=== PATIENT | male | born 1945 | race African-American/Black ===

== ENCOUNTER 2018-08-10 14:59 | Emergency (ER) | payer OTHER ==
[~2018-08-10] VITALS: Ht 175.3 cm; Wt 77.0 kg
[~2018-08-10 14:59] MED LIST: CLOP75TA33; LISI10TA5; PLAVIX; [UNRECOGNIZED DRUG - REMARK]
[2018-08-10] MEDS ORDERED: LIDOCAINE HCL 1% 20ML VIAL (Pyxis) INJ INFIL ONE (16:30)
[2018-08-10] MEDS ORDERED: LIDOCAINE HCL/PF 1% 10 MG/ML 5ML VIAL IJ NR (16:31)
[2018-08-10 17:44] LABS: BASOPHILS % 0.7 % (0.0-2.0); EOSINOPHILS % 2.6 % (0.0-5.0); HEMOGLOBIN. 12.7 g/dL (14.0-18.0); LYMPHOCYTES % 21.4 % (20.0-50.0); MEAN CORPUSCULAR HEMOGLOBIN 35.6 pg (28.0-32.0); MEAN CORPUSCULAR VOLUME 106.6 fL (80.0-94.0); MEAN PLATELET VOLUME 6.6 fl (7.4-10.4); MONOCYTES % 12.9 % (2.0-8.0); NEUTROPHILS % 62.4 % (40.0-76.0); PLATELET 319 x1000/uL (130-400); RED BLOOD CELL COUNT 3.56 mill/uL (4.7-6.1); RED CELL DISTRIBUTION WIDTH 16.2 % (11.6-14.6)
[2018-08-10 17:48] LABS: CHLORIDE 114 mEq/L (98-107)
[2018-08-10 17:52] LABS: ETHANOL BLOOD 258 mg/dL
[2018-08-11 01:30] VITALS: BP 120/72
== END 2018-08-11 01:50 | disposition home or self-care (01) ==
LOC: ER 14:59
DX: S01.81XA Laceration without foreign body of other part of head, initial encounter (principal); F10.129 Alcohol abuse with intoxication, unspecified; Z79.899 Other long term (current) drug therapy; W22.8XXA Striking against or struck by other objects, initial encounter; Y93.89 Activity, other specified; Y92.89 Other specified places as the place of occurrence of the external cause; Y99.8 Other external cause status; Y90.8 Blood alcohol level of 240 mg/100 ml or more
CPT/HCPCS: 12011; 36415; 70450; 80053; 85025; 99285; G0482; J7060; J3490

== ENCOUNTER 2018-08-16 11:24 | Inpatient (IN) | payer OTHER ==
[~2018-08-16] VITALS: Ht 180.3 cm; Wt 52.2 kg
[2018-08-16] MEDS ORDERED: SODIUM CHLORIDE 0.9% 1,000 ML IV ONE (11:30)
[2018-08-16 12:19] LABS: BG BASE EXCESS -7.3 mmol/L (-2.0-2.0); BG CARBOXYHEMOGLOBIN 1.1 % (0.5-1.5); BG DEOXYHEMOGLOBIN 5.1 % (0.0-5.0); BG FRACTION INSPIRED OXYGEN 26; BG HCO3 ACT 17.1 mmol/L (22.0-26.0); BG METHEMOGLOBIN 0.3 % (0.0-1.5); BG OXYGEN SATURATION 94.8 % (92.0-98.5); BG OXYHEMOGLOBIN 93.5 % (94.0-97.0); BG PCO2 31.2 mmHg (35.0-45.0); BG PH 7.356 (7.350-7.450); BG PO2 82.9 mmHg (75.0-100.0); BG SAMPLE SITE RIGHT RADIAL; BG TOTAL HEMOGLOBIN 12.6 g/dL (12.0-18.0); BG VENT MODE NASAL CANNULA
[2018-08-16 12:19] LABS: BASOPHILS % 0.6 % (0.0-2.0); HEMATOCRIT. 38.3 % (42.0-52.0); HEMOGLOBIN. 12.8 g/dL (14.0-18.0); LYMPHOCYTES % 8.3 % (20.0-50.0); MEAN CORPUSCULAR HEMOGLOBIN 35.5 pg (28.0-32.0); MEAN CORPUSCULAR VOLUME 106.2 fL (80.0-94.0); MEAN PLATELET VOLUME 7.2 fl (7.4-10.4); NEUTROPHILS % 88.1 % (40.0-76.0); PLATELET 237 x1000/uL (130-400); RED BLOOD CELL COUNT 3.61 mill/uL (4.7-6.1); RED CELL DISTRIBUTION WIDTH 15.4 % (11.6-14.6)
[2018-08-16 12:23] LABS: CHLORIDE 109 mEq/L (98-107)
[2018-08-16 12:24] LABS: PROTHROMBIN TIME 10.5 sec (9.1-11.1)
[2018-08-16 12:27] LABS: ETHANOL BLOOD 29 mg/dL
[2018-08-16 12:30] LABS: AMMONIA 15 uMol/L (<32)
[2018-08-16] MEDS ORDERED: PIPERACILLIN/TAZ 3.375G PREMIX 50 ML IV ONE (12:45)
[2018-08-16] MEDS ORDERED: POTASSIUM CHLORIDE 20MEQ TABLET SR PO ONE (12:45)
[2018-08-16] MEDS ORDERED: DEXT 10% WATER 1,000 ML IV ONE (13:00)
[2018-08-16] MEDS ORDERED: DEXTROSE 50% WATER 50ML SYRINGE IV ONE (13:00)
[2018-08-16 19:00] VITALS: BP 161/81
[2018-08-16 19:01] VITALS: BP 161/81
[2018-08-16 20:00] VITALS: BP 128/74
[2018-08-16 20:01] VITALS: BP 128/74
[2018-08-16] MEDS ORDERED: DEXTROSE 50% WATER 50ML SYRINGE IV PRN (20:15)
[2018-08-16] MEDS: BLOOD SUGAR DIAGNOSTIC STRIP TEST SCH (20:22)
[2018-08-16] MEDS: INSULIN LISPRO 100 UNITS/ML SUBCUT SCH (20:23)
[2018-08-16] MEDS ORDERED: LORAZEPAM 2MG/ML CPJ IV PRN (21:30)
[2018-08-16] MEDS: DEXT 5%/0.45% NACL 1000ML 1,000 ML IV SCH (21:35)
[2018-08-16 22:01] VITALS: BP 135/67
[2018-08-16] MEDS ORDERED: POTASSIUM CHLORIDE 20MEQ TABLET SR PO NR (23:00)
[2018-08-16] MEDS ORDERED: CALCIUM GLUCONATE 1,000 MG in DEXT 5% WATER 90 ML IV NR (23:30)
[2018-08-17] VITALS (10 sets, daily range): BP systolic 116–151; BP diastolic 48–97
[2018-08-17] MEDS: PANTOPRAZOLE 40MG DR TABLET PO SCH ×3 (00:26→20:21)
[2018-08-17 06:09] LABS: CHLORIDE 109 mEq/L (98-107)
[2018-08-17 06:15] LABS: BASOPHILS % 0.4 % (0.0-2.0); EOSINOPHILS % 0.2 % (0.0-5.0); HEMATOCRIT. 33.6 % (42.0-52.0); HEMOGLOBIN. 11.3 g/dL (14.0-18.0); LYMPHOCYTES % 10.5 % (20.0-50.0); MEAN CORPUSCULAR HEMOGLOBIN 35.7 pg (28.0-32.0); MEAN CORPUSCULAR VOLUME 105.9 fL (80.0-94.0); MEAN PLATELET VOLUME 7.3 fl (7.4-10.4); NEUTROPHILS % 82.9 % (40.0-76.0); PLATELET 168 x1000/uL (130-400); RED BLOOD CELL COUNT 3.17 mill/uL (4.7-6.1); RED CELL DISTRIBUTION WIDTH 15.5 % (11.6-14.6)
[2018-08-17] MEDS: BLOOD SUGAR DIAGNOSTIC STRIP TEST SCH ×4 (07:27→20:22)
[2018-08-17] MEDS: INSULIN LISPRO 100 UNITS/ML SUBCUT SCH ×4 (07:46→20:21)
[2018-08-17] MEDS: DEXT 5%/0.45% NACL 1000ML 1,000 ML IV SCH (10:09)
[2018-08-17] MEDS ORDERED: MAGNESIUM 2 G PREMIX 50 ML IV NR (18:00)
[2018-08-18] VITALS (12 sets, daily range): BP systolic 112–149; BP diastolic 55–98
[2018-08-18 05:28] LABS: BASOPHILS % 0.3 % (0.0-2.0); EOSINOPHILS % 0.7 % (0.0-5.0); HEMATOCRIT. 35.7 % (42.0-52.0); HEMOGLOBIN. 12.1 g/dL (14.0-18.0); LYMPHOCYTES % 18.1 % (20.0-50.0); MEAN CORPUSCULAR HEMOGLOBIN 35.9 pg (28.0-32.0); MEAN CORPUSCULAR VOLUME 105.8 fL (80.0-94.0); MEAN PLATELET VOLUME 7.7 fl (7.4-10.4); MONOCYTES % 6.9 % (2.0-8.0); PLATELET 139 x1000/uL (130-400); RED BLOOD CELL COUNT 3.38 mill/uL (4.7-6.1); RED CELL DISTRIBUTION WIDTH 15.3 % (11.6-14.6)
[2018-08-18 07:12] LABS: CHLORIDE 106 mEq/L (98-107)
[2018-08-18] MEDS: BLOOD SUGAR DIAGNOSTIC STRIP TEST SCH ×4 (07:32→20:33)
[2018-08-18] MEDS: INSULIN LISPRO 100 UNITS/ML SUBCUT SCH ×4 (08:00→20:42)
[2018-08-18] MEDS: PANTOPRAZOLE 40MG DR TABLET PO SCH ×2 (08:08→20:32)
[2018-08-18] MEDS: FOLIC ACID 1MG TABLET PO SCH (08:08)
[2018-08-18] MEDS ORDERED: POTASSIUM CHLORIDE 20MEQ TABLET SR PO SCH (13:30)
[2018-08-18] MEDS: DEXT 5%/0.45% NACL 1000ML 1,000 ML IV SCH (14:12)
[2018-08-18] MEDS ORDERED: POTASSIUM CHLORIDE 10MEQ TABLET SR PO SCH (19:15)
[2018-08-19] VITALS (8 sets, daily range): BP systolic 107–142; BP diastolic 56–76
[2018-08-19] MEDS: DEXT 5%/0.45% NACL 1000ML 1,000 ML IV SCH (05:20)
[2018-08-19 07:09] LABS: CHLORIDE 108 mEq/L (98-107)
[2018-08-19] MEDS: INSULIN LISPRO 100 UNITS/ML SUBCUT SCH ×3 (07:53→17:38)
[2018-08-19] MEDS: BLOOD SUGAR DIAGNOSTIC STRIP TEST SCH ×4 (07:53→21:00)
[2018-08-19] MEDS: PANTOPRAZOLE 40MG DR TABLET PO SCH ×2 (08:15→22:31)
[2018-08-19] MEDS: FOLIC ACID 1MG TABLET PO SCH (08:15)
[2018-08-19 12:26] LABS: CLARITY URINE CLEAR (CLEAR); COLOR URINE YELLOW (YELLOW); KETONES URINE NEGATIVE (NEGATIVE); LEUKOCYTE ESTERASE URINE NEGATIVE (NEGATIVE); NITRITE URINE NEGATIVE (NEGATIVE); OCCULT BLOOD URINE NEGATIVE (NEGATIVE); PROTEIN URINE NEGATIVE (NEGATIVE); SPECIFIC GRAVITY URINE 1.005 (1.005-1.030)
[2018-08-19] MEDS ORDERED: NICOTINE 21MG PATCH TD NR (13:30)
[2018-08-19 13:59] LABS: CANNABINOID URINE SCREEN NEGATIVE (NEGATIVE); METHADONE URINE SCREEN NEGATIVE (NEGATIVE); OPIATES URINE SCREEN NEGATIVE (NEGATIVE); PHENCYCLIDINE URINE SCREEN NEGATIVE (NEGATIVE)
[2018-08-19 14:01] LABS: *AMPHETAMINES SCREEN URINE NEGATIVE (NEGATIVE); *BARBITURATES SCREEN URINE NEGATIVE (NEGATIVE); *BENZODIAZEPINES SCREEN URINE NEGATIVE (NEGATIVE); *COCAINE SCREEN URINE NEGATIVE (NEGATIVE)
[2018-08-19 16:03] LABS: HEPATITIS B SURFACE ANTIGEN NEGATIVE
[2018-08-19 16:32] LABS: HEPATITIS B CORE AB IGM NEGATIVE
[2018-08-19 16:33] LABS: HEPATITIS A AB IGM NEGATIVE (NEGATIVE)
[2018-08-20] VITALS (8 sets, daily range): BP systolic 112–135; BP diastolic 54–77
[2018-08-20] MEDS ORDERED: ONDANSETRON HCL 4MG/2ML INJ IV PRN (03:30)
[2018-08-20 06:14] LABS: HEMATOCRIT 34.8 % (42.0-52.0); HEMOGLOBIN 11.9 g/dL (14.0-18.0); MEAN CORPUSCULAR HEMOGLOBIN 36.2 pg (28.0-32.0); MEAN CORPUSCULAR VOLUME 106.3 fL (80.0-94.0); PLATELET 123 x1000/uL (130-400); RED BLOOD CELL COUNT 3.27 mill/uL (4.7-6.1); RED CELL DISTRIBUTION WIDTH 15.3 % (11.6-14.6)
[2018-08-20 06:23] LABS: CHLORIDE 104 mEq/L (98-107)
[2018-08-20] MEDS: BLOOD SUGAR DIAGNOSTIC STRIP TEST SCH ×4 (07:29→21:00)
[2018-08-20] MEDS: PANTOPRAZOLE 40MG DR TABLET PO SCH (08:01)
[2018-08-20] MEDS: MULTIVITAMINS,THER W-MINERALS TABLET PO SCH (08:01)
[2018-08-20] MEDS: FOLIC ACID 1MG TABLET PO SCH (08:01)
[2018-08-20] MEDS: THIAMINE HCL 100MG TABLET PO SCH (08:01)
[2018-08-20] MEDS: NICOTINE 21MG PATCH TD SCH (08:02)
[2018-08-20] MEDS ORDERED: MORPHINE SULFATE 4 MG/ML CPJ (NOT FOR IM USE) IV PRN (14:15)
[2018-08-20] MEDS: DEXT 5%/0.45% NACL 1000ML 1,000 ML IV SCH (14:30)
[2018-08-20] MEDS ORDERED: LORAZEPAM 2MG/ML CPJ IV PRN (15:30)
[2018-08-20] MEDS ORDERED: BISACODYL 5MG TABLET PO PRN (17:15)
[2018-08-20] MEDS ORDERED: BISACODYL 10MG SUPP PR PRN (17:15)
[2018-08-20 18:33] LABS: GAMMA GLUTAMYL TRANSPEPTIDASE 666 IU/L (11-50)
[2018-08-20 18:34] LABS: AMYLASE 141 IU/L (25-115)
[2018-08-21] VITALS: BP 129/63
[2018-08-21] MEDS: DEXT 5%/0.45% NACL 1000ML 1,000 ML IV SCH (03:19)
[2018-08-21 04:00] VITALS: BP 130/72
[2018-08-21 05:46] LABS: BASOPHILS % 0.4 % (0.0-2.0); EOSINOPHILS % 1.7 % (0.0-5.0); HEMATOCRIT. 33.3 % (42.0-52.0); HEMOGLOBIN. 11.2 g/dL (14.0-18.0); LYMPHOCYTES % 19.7 % (20.0-50.0); MEAN PLATELET VOLUME 8.1 fl (7.4-10.4); MONOCYTES % 8.9 % (2.0-8.0); NEUTROPHILS % 69.3 % (40.0-76.0); PLATELET 128 x1000/uL (130-400); RED BLOOD CELL COUNT 3.11 mill/uL (4.7-6.1); RED CELL DISTRIBUTION WIDTH 15.8 % (11.6-14.6)
[2018-08-21 06:44] LABS: CHLORIDE 105 mEq/L (98-107)
[2018-08-21 06:56] LABS: TOTAL IRON BINDING CAPACITY 200 ug/dL (250-450)
[2018-08-21] MEDS: BLOOD SUGAR DIAGNOSTIC STRIP TEST SCH ×3 (07:30→20:54)
[2018-08-21] MEDS: NICOTINE 21MG PATCH TD SCH (09:46)
[2018-08-21] MEDS: PANTOPRAZOLE SODIUM 40 MG/VIAL IV SCH (09:46)
[2018-08-21] MEDS: FOLIC ACID 1MG TABLET PO SCH (09:47)
[2018-08-21] MEDS: THIAMINE HCL 100MG TABLET PO SCH (09:47)
[2018-08-21] MEDS: DOCUSATE SODIUM 250MG CAPSULE PO SCH (09:47)
[2018-08-21] MEDS: MULTIVITAMINS,THER W-MINERALS TABLET PO SCH (09:47)
[2018-08-21 13:31] LABS: FOLIC ACID (FOLATE) SERUM 15.3 ng/mL (>5.38)
[2018-08-21] MEDS ORDERED: PIPERACILLIN/TAZ 3.375G PREMIX 50 ML IV SCH (14:00)
[2018-08-21 16:00] VITALS: BP 120/53
[2018-08-21] MEDS ORDERED: METRONIDAZOLE 500 MG PREMIX 100 ML IV SCH (16:00)
[2018-08-21] MEDS ORDERED: LEVOFLOXACIN 500MG PREMIX 100 ML IV SCH (17:00)
[2018-08-21] MEDS ORDERED: CIPROFLOXACIN 0.3% OPHTH SOLN 2.5ML LEFTEYE SCH (17:00)
[2018-08-21] MEDS ORDERED: LEVOFLOXACIN 500MG TABLET PO NR (17:30)
[2018-08-21 20:00] VITALS: BP 102/57
[2018-08-21] MEDS: OFLOXACIN 0.3% OPHTH SOLN 5ML LEFTEYE SCH (23:08)
[2018-08-21] MEDS: METRONIDAZOLE 500MG TABLET PO SCH (23:08)
[2018-08-22] VITALS: BP 100/54
[2018-08-22 04:00] VITALS: BP 101/69
[2018-08-22] MEDS: METRONIDAZOLE 500MG TABLET PO SCH (05:31)
[2018-08-22 06:26] LABS: BASOPHILS % 0.3 % (0.0-2.0); EOSINOPHILS % 1.2 % (0.0-5.0); HEMATOCRIT. 31.5 % (42.0-52.0); HEMOGLOBIN. 10.7 g/dL (14.0-18.0); LYMPHOCYTES % 19.6 % (20.0-50.0); MEAN CORPUSCULAR HEMOGLOBIN 35.9 pg (28.0-32.0); MEAN PLATELET VOLUME 8.7 fl (7.4-10.4); MONOCYTES % 11.1 % (2.0-8.0); NEUTROPHILS % 67.8 % (40.0-76.0); PLATELET 153 x1000/uL (130-400); RED BLOOD CELL COUNT 2.98 mill/uL (4.7-6.1); RED CELL DISTRIBUTION WIDTH 15.4 % (11.6-14.6)
[2018-08-22 06:48] LABS: CHLORIDE 104 mEq/L (98-107)
[2018-08-22 07:02] LABS: AMYLASE 104 IU/L (25-115)
[2018-08-22] MEDS: BLOOD SUGAR DIAGNOSTIC STRIP TEST SCH (08:11)
[2018-08-22] MEDS: OFLOXACIN 0.3% OPHTH SOLN 5ML LEFTEYE SCH (08:58)
[2018-08-22] MEDS: NICOTINE 21MG PATCH TD SCH (08:58)
[2018-08-22] MEDS: PANTOPRAZOLE SODIUM 40 MG/VIAL IV SCH ×2 (08:58→09:00)
[2018-08-22] MEDS: MULTIVITAMINS,THER W-MINERALS TABLET PO SCH (08:59)
[2018-08-22] MEDS: DOCUSATE SODIUM 250MG CAPSULE PO SCH (08:59)
[2018-08-22] MEDS: THIAMINE HCL 100MG TABLET PO SCH (08:59)
[2018-08-22] MEDS: FOLIC ACID 1MG TABLET PO SCH (08:59)
[2018-08-22 10:19] VITALS: BP 100/69
[2018-08-22] MEDS ORDERED: LEVOFLOXACIN 250MG TABLET PO SCH (11:00)
== END 2018-08-22 11:45 | disposition home or self-care (01) | DRG 444 ==
LOC: ER 11:24 → 5EST 12:43 → EDBEDREQ 12:46 → EDBEDREQTM 12:46 → ENRESERV 15:20 → CANBEDREQ 16:16 → EDBEDREQ 18:21 → 5EST 08-17 13:56 → 6EST 08-21 14:12
PROVIDERS: ADMIT Internal Medicine; ATTEND Internal Medicine
PROC: CF1C1ZZ Planar Nuclear Medicine Imaging of Hepatobiliary System, All using Technetium 99m (Tc-99m) (ICD-10-PCS; principal; 2018-08-21)
DX: K80.21 Calculus of gallbladder without cholecystitis with obstruction (principal); G92 Toxic encephalopathy; E46 Unspecified protein-calorie malnutrition; Z68.1 Body mass index [BMI] 19.9 or less, adult; G93.1 Anoxic brain damage, not elsewhere classified; K70.9 Alcoholic liver disease, unspecified; E16.2 Hypoglycemia, unspecified; D69.6 Thrombocytopenia, unspecified; E78.5 Hyperlipidemia, unspecified; H10.9 Unspecified conjunctivitis; I11.0 Hypertensive heart disease with heart failure; K83.8 Other specified diseases of biliary tract; F10.229 Alcohol dependence with intoxication, unspecified; I25.10 Atherosclerotic heart disease of native coronary artery without angina pectoris; F17.210 Nicotine dependence, cigarettes, uncomplicated; Y90.1 Blood alcohol level of 20-39 mg/100 ml; I50.9 Heart failure, unspecified; Z59.0 Homelessness; Z91.19 Patient's noncompliance with other medical treatment and regimen; Z79.899 Other long term (current) drug therapy; D64.89 Other specified anemias; M19.90 Unspecified osteoarthritis, unspecified site; G31.2 Degeneration of nervous system due to alcohol; M62.50 Muscle wasting and atrophy, not elsewhere classified, unspecified site
CPT/HCPCS: 36415; 36600; 70450; 71045; 74181; 76700; 78227; 80048; 80053; 80076; 80305; 81003; 82140; 82150; 82248; 82375; 82550; 82553; 82607; 82728; 82746; 82805; 82962; 82977; 83036; 83540; 83550; 83605; 83690; 83735; 83880; 84100; 84443; 84484; 85025; 85027; 85610; 85730; 86705; 86709; 86803; 87040; 87340; 93005; 96361; 96365; 96366; 96375; 97162; 99291; A9537; C1893; C9113; G0482; J0610; J1956; J2405; J2543; J3475; J3490; J7030; J7060; J7070